=== PATIENT | female | born 1975 | race Caucasian/White ===

== ENCOUNTER 2017-01-23 17:17 | Inpatient (IN) | payer OTHER ==
[~2017-01-23] VITALS: Ht 167.6 cm; Wt 79.5 kg
[2017-01-23] MEDS ORDERED: FLUOXETINE HCL20 MG PO (17:26)
[2017-01-23 18:10] LABS: ADD MIUA? NO; BILIRUBIN NEGATIVE; BLOOD NEGATIVE; COLOR STRAW ((YELLOW)); GLUCOSE (STRIP) NEGATIVE; KETONES NEGATIVE; LEUKOCYTES NEGATIVE; NITRITE NEGATIVE; PROTEIN (STRIP) NEGATIVE; SPECIFIC GRAVITY 1.004 (1.000-1.030); UROBILINOGEN 0.2 MG/DL (0.2-1.0)
[2017-01-23] MEDS ORDERED: TREXIMET 85-1 TABLET PO (20:36)
[2017-01-23] MEDS ORDERED: ZONEGRAN50 MG PO (20:37)
[2017-01-23] MEDS ORDERED: BENADRYL ALLERG25 MG PO (20:37)
[2017-01-24 00:15] VITALS: BP 109/64
[2017-01-24 04:08] VITALS: BP 107/59
[2017-01-24 06:52] LABS: HEMATOCRIT 43.5 % (36.0-46.0); MCHC 33.3 G/DL (30.0-36.0); MCV 90.1 FL (83-99); MEAN PLAT.VOLUME 9.9 uM^3 (9.5-12.4); PLATELET COUNT 263 K/uL (156-360); RBC DIS.WIDTH-CV 12.5 % (11.8-14.6); RBC DIS.WIDTH-SD 41.4 % (39-53); RED BLOOD COUNT 4.83 M/uL (3.80-5.20); WHITE BLOOD COUNT 8.6 K/uL (4.1-10.2)
[2017-01-24 07:08] VITALS: BP 110/61
[2017-01-24 07:32] LABS: ANION GAP 10 MEQ/L (2-14); CHLORIDE 108 MEQ/L (99-109); POTASSIUM 3.9 MEQ/L (3.7-5.4); SAMPLE HEMOLYSIS CHECK 0; SAMPLE ICTERIC CHECK 0; SAMPLE LIPEMIA CHECK 0; SODIUM 138 MEQ/L (136-147)
[2017-01-24 07:37] LABS: GFR ESTIMATE (CALCULATED) > 59 mL/min/; GLUCOSE 129 mg/dL (70-99); UREA NITROGEN (BUN) 12 mg/dL (9-23)
[2017-01-24 10:00] VITALS: BP 109/66
[2017-01-24 15:00] VITALS: BP 111/63
[2017-01-24 23:44] VITALS: BP 108/65
[2017-01-25 07:48] VITALS: BP 119/71
[2017-01-25 16:20] VITALS: BP 130/69
[2017-01-26 00:16] VITALS: BP 106/66
[2017-01-26 07:25] VITALS: BP 116/76
[2017-01-26] MEDS ORDERED: GABAPENTIN300 MG PO (15:33)
[2017-01-26] MEDS ORDERED: OYSTER SHELL 51 EACH PO (15:33)
[2017-01-26] MEDS ORDERED: CYCLOBENZAPRINE5 MG PO (15:33)
[2017-01-26] MEDS ORDERED: TRAMADOL HCL50 MG PO (15:33)
[2017-01-26 16:58] VITALS: BP 113/67
== END 2017-01-26 17:44 | disposition home or self-care (01) | DRG 552 ==
LOC: EME 17:17 → EDOF 22:01 → 3EAST 01-24 00:37
PROVIDERS: Hospitalist; Physician Assistant
PROC: 3E0S33Z Introduction of Anti-inflammatory into Epidural Space, Percutaneous Approach (ICD-10-PCS; principal; 2017-01-23)
DX: M54.17 Radiculopathy, lumbosacral region (principal); M54.5 Low back pain; Z86.59 Personal history of other mental and behavioral disorders
CPT/HCPCS: 72148; 72195; 80048; 81003; 82306; 85027; 97530 GP; G0378; J1030; J1650; J1885; J2270; J7512